=== PATIENT | male | born 1965 | race Caucasian/White ===

== ENCOUNTER 2018-01-08 09:43 | Day surgery (SDC) | payer OTHER ==
[~2018-01-08] VITALS: Ht 172.7 cm; Wt 80.0 kg
[~2018-01-08 09:43] MED LIST: FLEXERIL10 MG PO; LYRICA100 MG PO; MAXALT10 MG PO; MECLIZINE HCL25 MG PO; PERCOCET 5/31 TABLET PO; PRAVASTATIN SOD80 MG PO; SUMATRIPTAN SU100 MG PO; TIZANIDINE HCL2 M1 PO; TOPIRAMATE100 MG PO; ZEBUTAL 50-3251 EACH PO; ZESTORETIC 20-1 EAC1 PO
== END 2018-01-08 18:35 | disposition home or self-care (01) ==
LOC: CATH 09:43
PROC: B2151ZZ Fluoroscopy of Left Heart using Low Osmolar Contrast (ICD-10-PCS; principal; 2018-01-08)
PROC: B2111ZZ Fluoroscopy of Multiple Coronary Arteries using Low Osmolar Contrast (ICD-10-PCS; principal; 2018-01-08)
PROC: 4A023N7 Measurement of Cardiac Sampling and Pressure, Left Heart, Percutaneous Approach (ICD-10-PCS; principal; 2018-01-08)
DX: R94.39 Abnormal result of other cardiovascular function study (principal); I25.82 Chronic total occlusion of coronary artery; I25.10 Atherosclerotic heart disease of native coronary artery without angina pectoris; I10 Essential (primary) hypertension; G89.29 Other chronic pain; E78.2 Mixed hyperlipidemia; F17.200 Nicotine dependence, unspecified, uncomplicated; Z82.49 Family history of ischemic heart disease and other diseases of the circulatory system
CPT/HCPCS: C1769; C1887; J1644; J2250; J3010; J7040